=== PATIENT | male | born 1960 | race Caucasian/White ===

== ENCOUNTER 2021-12-15 18:10 | Emergency (ER) | payer MEDICAID ==
[~2021-12-15] VITALS: Ht 180.3 cm; Wt 81.6 kg
--- NOTE | 2021-12-15 18:26 | NUR ---
[email or web address], medical screening exam in progress
--- NOTE | 2021-12-15 19:02 | NUR ---
Nursing SBAR given to ALVAREZ Alvarado, pending urine specimen@this time. Patient was verbally instructed to give urine. Urinal and labeled sterile container [email or web address].
[2021-12-15 19:20] LABS: MEAN CORPUSCULAR HEMOGLOBIN 29.7 uug (23.8-33.4); MEAN CORPUSCULAR VOLUME 86.7 fL (73.0-96.2); PLATELET COUNT (AUTO) 245 K/uL (152-348)
[2021-12-15 19:22] LABS: BILIRUBIN,DIRECT 0.1 mg/dL (0.0-0.2); BILIRUBIN,TOTAL 0.2 mg/dL (0.2-1.0); CREATININE 0.9 mg/dL (0.6-1.3); POTASSIUM 3.9 mmol/L (3.5-5.1); TOTAL PROTEIN, SERUM 8.1 g/dL (6.4-8.2)
[2021-12-15] MEDS ORDERED: CHOLECALCIFEROL 1,000 UNIT TABLET ONE (19:27)
[2021-12-15] MEDS ORDERED: CHOLECALCIFEROL 1,000 UNIT TABLET PO SCH (19:30)
[2021-12-15] MEDS ORDERED: SULF1TAB48 PO (19:43)
[2021-12-15 21:21] LABS: *BILIRUBIN,URIN NEGATIVE (NEGATIVE); *BLOOD, URINE NEGATIVE (NEGATIVE); *CLARITY,URINE CLEAR (CLEAR); *COLOR,URINE YELLOW (YELLOW); *KETONES,URINE NEGATIVE (NEGATIVE); *UROBILINOGEN,URINE 0.2 E.U./dl (NORMAL); LEUKOCYTE ESTERASE ,URINE NEGATIVE (NEGATIVE); NITRITE, URINE NEGATIVE (NEGATIVE); PH,URINE 7.5 (5.0-8.0); UGLUCOSE NEGATIVE (NEGATIVE)
[2021-12-15 21:49] VITALS: BP 137/86
--- NOTE | 2021-12-15 21:49 | NUR ---
Patient discharged to home in stable condition. Written and verbal after care instructions given. Patient verbalizes understanding of instructions. Stressed follow up or return to ER for worsening s/s.
== END 2021-12-15 21:50 | disposition home or self-care (01) ==
LOC: ER 18:17
DX: I83.015 Varicose veins of right lower extremity with ulcer other part of foot (principal); L97.511 Non-pressure chronic ulcer of other part of right foot limited to breakdown of skin; L97.311 Non-pressure chronic ulcer of right ankle limited to breakdown of skin; L08.9 Local infection of the skin and subcutaneous tissue, unspecified; L02.01 Cutaneous abscess of face; L03.211 Cellulitis of face; M32.9 Systemic lupus erythematosus, unspecified; Z86.14 Personal history of Methicillin resistant Staphylococcus aureus infection; R94.31 Abnormal electrocardiogram [ECG] [EKG]; E46 Unspecified protein-calorie malnutrition; Z68.25 Body mass index [BMI] 25.0-25.9, adult; Z79.891 Long term (current) use of opiate analgesic; G89.29 Other chronic pain
CPT/HCPCS: 36415; 83735; 85025; 85651; 87070; 87077; 93005; A4663